=== PATIENT | female | born 1960 | race Native Hawaiian/Other Pacific Islander ===

== ENCOUNTER 2020-02-08 14:20 | Outpatient (CLI) | payer OTHER | END 2020-02-08 19:12 | disposition home or self-care (01) | LOC: RAD 14:20 | DX: M54.5 Low back pain (principal); M25.551 Pain in right hip ==

== ENCOUNTER 2022-05-28 15:16 | Outpatient (CLI) | payer OTHER | END 2022-05-28 21:40 | disposition home or self-care (01) | LOC: RAD 15:16 | PROVIDERS: ATTEND Internal Medicine | DX: M25.551 Pain in right hip (principal); M54.59 Other low back pain; M25.511 Pain in right shoulder ==